=== PATIENT | female | born 1995 | race Caucasian/White ===

== ENCOUNTER 2023-09-22 11:04 | Emergency (ER) | payer OTHER ==
--- NOTE | 2023-09-22 11:43 | ERPHSYRPT ---
- History of Present Illness Time Seen by Provider: 09/22/23 11:38 Source: patient Exam Limitations: no limitations Physician History: Patient is 27-year-old female without any significant past medical history started having some redness in her both eyes more on the right than the left with some excessive watering and irritation. She denies any other symptoms. She denies any other contacts with the same type of symptoms. She works at [employer] and they advised her to be checked out before she comes to work. Timing/Duration: today Location: bilateral eyes Severity: moderate Apparent Injury: no Associated Symptoms: burning, itching, sensitivity to light, redness Visual Assistive Devices: None Trauma: No Welding Arc/Tanning Bed Exposure: No Allergies/Adverse Reactions: No Known Drug Allergies Allergy (Unverified 09/22/23 11:22) Home Medications: No Reportable Medications [No Reported Medications] 09/22/23 [History] - Review of Systems Constitutional: No Symptoms Eyes: Eye Redness, Itchy, Tearing, No Vision Changes, No Double Vision, No Foreign Body Sensation Ears, Nose, & Throat: No Symptoms Respiratory: No Symptoms Cardiac: No Symptoms Abdominal/Gastrointestinal: No Symptoms Genitourinary Symptoms: No Symptoms Musculoskeletal: No Symptoms Skin: No Symptoms Neurological: No Symptoms Psychological: No Symptoms - Physical Exam General Appearance: no apparent distress Vision Acuity Degree Evaluation Phase: Corrected Vision Acuity Right Eye: 20/20 Intraocular Pressure (Tonopen): both eyes Eye Exam: bilateral eye: conjunctival inflammation, erythema Ears, Nose, Throat Exam: normal ENT inspection Neck Exam: normal inspection Respiratory Exam: normal breath sounds Cardiovascular Exam: regular rate/rhythm Gastrointestinal Exam: soft Neurologic: alert, oriented x 3, cooperative - Course Nursing assessment & vital signs reviewed: Yes Ordered Tests: Medication Summary Generic Name Dose Route Start Last Admin Trade Name Freq PRN Reason Stop Dose Admin Neomycin/Polymyxin/Hydrocortisone 0.25 ml 09/22/23 13:00 Neomy Sulf/Polymyx B Sulf/Hc 7.5 Ml Bottle OP 10/22/23 12:59 QID ON LICENSE OF [facility] - Progress Progress: unchanged Counseled pt/family regarding: diagnosis, need for follow-up Medical Desision Making - Diagnostic Testing Diagnostic test were ordered, analyzed, and reviewed by me: No - Risk of complications Minimal Risk: Minimal risk of morbidity - Departure Departure Disposition: Home Clinical Impression: Conjunctivitis Qualifiers: Conjunctivitis type: acute Acute conjunctivitis type: unspecified Laterality: bilateral Qualified Code(s): H10.33 - Unspecified acute conjunctivitis, bilateral Condition: Stable Critical Care Time: No Referrals: CARLOS ENRIQUE CRUZ NP [Primary Care Provider] - Follow up/PCP as directed Instructions: Conjunctivitis (pink eye) Additional Instructions: Use eye drops for 7 days as prescribed. Discharge/Care Plan SAMUEL GARSIA was seen on 09/22/23 in the Emergency Room. The patient was counseled regarding Diagnosis,Lab results, Imaging studies, need for follow up and when to return to the Emergency Room. Prescriptions given: Discharge Note I have spoken with the patient and/or caregivers. I have explained the patient's condition, diagnosis and treatment plan based on the information available to me at this time. I have answered the patient's and/or caregiver's questions and addressed any concerns. The patient and/or caregivers have as good understanding of the patient's diagnosis, condition and treatment plan as can be expected at this point. The vital signs have been stable. The patient's condition is stable and appropriate for discharge from the emergency department. The patient will pursue further outpatient evaluation with the primary care physician or other designated or consulting physician as outlined in the discharge instructions. The patient and/or caregivers are agreeable to this plan of care and follow-up instructions have been explained in detail. The patient and/or caregivers have received these instruction. The patient/and or caregivers are aware that any significant change in condition or worsening of symptoms should prompt an immediate return to this or the closest emergency department or call 911. SAMUEL GARSIA was seen on 09/22/23 n the Emergency Room. At that time you were treated for an emergent condition, during your visit Laboratory, Radiology and/or other procedures may have been ordered. It is very important that you follow-up with your Primary Care Physician CARLOS ENRIQUE CRUZ within the next 24-48 hours to review your Emergency Room visit and the final results of testing that was ordered. Some test results such as Urine Cultures, Blood Cultures, and other cultures if ordered will not be finalized for 24-48 hours. If you do not have a Primary Care Provider please call the medical records department at [phone] ext [phone] to obtain a copy of your results or you may sign into our patient portal to obtain these results by visiting us @ [email or web address] and completing the following steps: 1. Click on the Patient Portal link 2. Click the Patient Self Enrollment Link to complete the enrollment form and entering your 3. Once the enrollment form is completed you will receive an email with a temporary ID and password at the email address you provided. 4. Next choose a user name and password. Your user name must be at least 4 characters long and your password must be at least 4 characters long. 5. Choose a security question from the list and provide your answer to the question. If you already have signed into the Health Portal you may access your Health Care Information 10/12 by the following steps: 1. Login to our website @ [email or web address] 2. Enter your original user name and password. FAQS The [facility] Health Portal is an online tool that contains your Lab Results, Radiology Reports, Visit History, Discharge Instructions and Health Summary Lab and Radiology Results will not be available for 72 hours on the portal. The Portal is a secure site, passwords are encryted and URLs are re-written so they cannot be copied and pasted. You and authorized family members are the only ones who can access your Portal. Also there is a timeout feature that protects your information if you leave the Portal page open. If you have technical difficulty please use the Contact Us link on the page this will allow you to submit any questions you have regarding the Portal or you may contact the Medical Record Department at [phone]. Forms: Work/School Release Form
[2023-09-22] MEDS ORDERED: Cortisporin Eye Drops OP ONE (11:53)
[2023-09-22 11:56] VITALS: BP 137/72; PULSE 93; RESP 18; TEMP 97.9; O2SAT 100
[2023-09-22] MEDS: Cortisporin Eye Drops OP SCH (12:03)
== END 2023-09-22 12:12 | disposition home or self-care (01) ==
LOC: ED 11:04
DX: H10.33 Unspecified acute conjunctivitis, bilateral (principal)
CPT/HCPCS: 99281; A9270-GY